=== PATIENT | female | born 1945 | race Caucasian/White ===

== ENCOUNTER 2017-06-25 11:33 | Inpatient (IN) ==
[2017-06-25] MEDS ORDERED: MORPHINE 2 MG/1 ML SYRINGE IV STA (12:22)
[2017-06-25] MEDS ORDERED: cefTRIAXone 1,000 MG in SODIUM CHLORIDE 0.9% 100 ML IV STA (12:22)
[2017-06-25] MEDS ORDERED: methylPREDNISolone SOD SUC 125 MG/2 ML VIAL IV STA (12:22)
[2017-06-25] MEDS ORDERED: ONDANSETRON 4 MG/2 ML VIAL IV STA ×2 (12:22→15:26)
[2017-06-25] MEDS ORDERED: FUROSEMIDE 100 MG/10 ML VIAL IV STA (12:22)
[2017-06-25] MEDS ORDERED: ALBUTEROL 2.5 MG/3 ML NEB RESP TX SCH (12:30)
[2017-06-25] MEDS ORDERED: ALBUTEROL 2.5 MG/3 ML NEB RESP TX ONE (12:36)
[2017-06-25 13:10] LABS: ABG Base Excess 11.7 MMOL/L (-2.5-2.5); ABG HCO3 35.5 MMOL/L (20-26); ABG Oxygen Saturation 97.4 % (95-100); ABG PH 7.324 (7.35-7.45); ABG TCO2 37.4 MMOL/L (23-27); Allen Test Positive
[2017-06-25 13:14] LABS: ABG PCO2 79.7 MM HG (35-48)
[2017-06-25] MEDS ORDERED: FUROSEMIDE 20 MG/2 ML VIAL IV STA (13:37)
[2017-06-25 13:55] LABS: Basophils % 0.1 % (0.0-0.8); Eosinophils % 0.1 % (0.00-10.9); Hematocrit 36.6 VOL% (35.7-47.0); Hemoglobin 11.7 GM/DL (12.0-16.0); Immature Granulocytes % 0.3 %; Immature Granulocytes Absolute 0.02 #; Lymphocytes # 2.7 10*3/uL (1.4-4.0); Lymphocytes % 36.5 % (21.3-54.2); Mean Corpuscular Hemoglobin 31 PG (27-34); Mean Corpuscular Volume 96.8 FL (87-102); Mean Platelet Volume 9.7 FL (9.6-12.0); Monocytes # 0.3 10*3/uL (0.11-0.8); Monocytes % 3.9 % (1.7-12.7); Neutrophils # 4.3 10*3/uL (1.4-7.4); Neutrophils % 59.1 % (38.7-73.9); Platelet Count 121 T/CUMM (130-400); Red Blood Count 3.78 MC/CUMM (3.8-5.5); White Blood Count 7.3 T/CUMM (4-12)
[2017-06-25 14:06] LABS: INR 0.9; PT Patient Result 9.5 SECS
[2017-06-25 14:15] LABS: Lactic Acid 1.1 MMOL/L (0.4-2.0)
[2017-06-25 14:17] LABS: Alanine Aminotransferase 20 U/L (13-56); Albumin 3.5 G/DL (3.4-5.0); Alkaline Phosphatase 48 U/L (45-117); Aspartate Amino Transferase 26 U/L (0-37); Bilirubin,Total < 0.39 MG/DL (0.2-1.0); Blood Urea Nitrogen 12 MG/DL (7-18); Calcium 8.1 MG/DL (8.5-10.1); Glucose 121 MG/DL (74-106); Magnesium 1.7 MG/DL (1.8-2.4); Osmolality,Calculated 275.7 MOS/KG (273-304); Potassium 2.9 MMOL/L (3.5-5.1); Sodium 138 MMOL/L (136-145); Total Protein 6.5 G/DL (6.4-8.3); Troponin I Only < 0.015 NG/ML (0.00-0.045)
[2017-06-25] MEDS ORDERED: POTASSIUM CHLORIDE 20 MEQ TABLET PO STA (14:24)
[2017-06-25] MEDS ORDERED: MAGNESIUM SULF RIDER 2 GM in PREMIX 1 EACH IV STA (14:33)
[2017-06-25] MEDS ORDERED: POTASSIUM CHLORIDE 20 MEQ TABLET PO ONE ×2 (14:46→20:30)
[2017-06-25] MEDS ORDERED: cefTRIAXone 1,000 MG VIAL ONE (14:46)
[2017-06-25] MEDS ORDERED: ONDANSETRON 4 MG/2 ML VIAL ONE ×2 (14:46→17:05)
[2017-06-25] MEDS ORDERED: FUROSEMIDE 40 MG/4 ML VIAL ONE (14:46)
[2017-06-25] MEDS ORDERED: MAGNESIUM SULF RIDER 50 ML IV ONE (14:47)
[2017-06-25] MEDS ORDERED: FUROSEMIDE 20 MG/2 ML VIAL ONE (14:47)
[2017-06-25] MEDS ORDERED: methylPREDNISolone SOD SUC 125 MG/2 ML VIAL ONE (14:47)
[2017-06-25] MEDS ORDERED: MORPHINE 2 MG/1 ML SYRINGE ONE (14:47)
[2017-06-25] MEDS ORDERED: ACETAMINOPHEN 325 MG TABLET PO PRN (15:31)
[2017-06-25] MEDS ORDERED: ONDANSETRON 4 MG/2 ML VIAL IV PRN (15:31)
[2017-06-25] MEDS ORDERED: MAGNESIUM SULF RIDER 4 GM in PREMIX 1 EACH IV PRN (15:33)
[2017-06-25] MEDS ORDERED: MAGNESIUM SULF RIDER 2 GM in PREMIX 1 EACH IV PRN (15:33)
[2017-06-25] MEDS ORDERED: ALBUTEROL/IPRATROPIUM 3 ML NEB RESP TX PRN (15:34)
[2017-06-25 16:41] LABS: Apearance,Urine CLEAR (Clear); Bilirubin,Urine Negative (Negative); Blood, Urine Negative (Negative); Glucose,Urine (UA) Negative (Negative); Ketones,Urine 5 mg/dL (Negative); Mucus,Urine Occasional /LPF (Occasional); Nitrite,Urine Negative (Negative); Protein,Urine Negative; RBC,Urine 1 /HPF (0-4); Squamous Epithelial Cell,Urine Occasional /HPF (0-10); Urine Color Yellow (Yellow); Urine Specific Gravity 1.013 (1.001-1.035); Urine Urobilinogen < 2.0 EU/DL (0.2-1.0); WBC,Urine 1 /HPF (0-6)
[2017-06-25] MEDS: FUROSEMIDE 40 MG/4 ML VIAL IV SCH (17:56)
[2017-06-25] MEDS: methylPREDNISolone SOD SUC 40 MG/1 ML VIAL IV SCH (21:16)
[2017-06-25] MEDS: FLUTICASONE/SALMETEROL 250-50 DISKUS 14 DOSE INH SCH (21:16)
[2017-06-25] MEDS: BUDESONIDE/FORMOTEROL 160-4.5 INHALER 6 GM INH SCH (21:17)
[2017-06-26] MEDS: methylPREDNISolone SOD SUC 40 MG/1 ML VIAL IV SCH ×3 (03:54→22:27)
[2017-06-26 05:45] LABS: Allen Test Positive; Pt O2 Delivery Device Venturi Mask
[2017-06-26 05:46] LABS: ABG Base Excess 13.3 MMOL/L (-2.5-2.5); ABG HCO3 43.4 MMOL/L (20-26); ABG Oxygen Saturation 94.6 % (95-100); ABG PH 7.286 (7.35-7.45); ABG PO2 73.8 MM HG (80-95); ABG TCO2 46.2 MMOL/L (23-27)
[2017-06-26 05:50] LABS: ABG PCO2 93.1 MM HG (35-48)
[2017-06-26 05:57] LABS: Basophils % 0.1 % (0.0-0.8); Hematocrit 34.4 VOL% (35.7-47.0); Hemoglobin 10.9 GM/DL (12.0-16.0); Immature Granulocytes % 0.5 %; Immature Granulocytes Absolute 0.08 #; Lymphocytes # 2.2 10*3/uL (1.4-4.0); Lymphocytes % 14.7 % (21.3-54.2); Mean Corpuscular HGB Conc 31.7 GM/DL (32-36); Mean Corpuscular Hemoglobin 30 PG (27-34); Mean Corpuscular Volume 96.1 FL (87-102); Mean Platelet Volume 10.2 FL (9.6-12.0); Monocytes # 0.7 10*3/uL (0.11-0.8); Monocytes % 4.5 % (1.7-12.7); Neutrophils % 80.2 % (38.7-73.9); Platelet Count 142 T/CUMM (130-400); Red Blood Count 3.58 MC/CUMM (3.8-5.5); Red Cell Distribution Width 11.9 % (9.3-17.3)
[2017-06-26 06:24] LABS: Calcium 8.3 MG/DL (8.5-10.1); Magnesium 2.2 MG/DL (1.8-2.4); Osmolality,Calculated 278.8 MOS/KG (273-304); Potassium 3.8 MMOL/L (3.5-5.1)
[2017-06-26 06:27] LABS: Band Neutrophils 18 % (0-10); Hypochromasia 1+; Lymphocytes 10 % (20-55); Macrocytosis Slight; Platelet Estimate Adequate; Segmented Neutrophils 68 % (50-85); Total Cells Counted 100
[2017-06-26] MEDS: FLUTICASONE/SALMETEROL 250-50 DISKUS 14 DOSE INH SCH ×2 (10:57→22:26)
[2017-06-26] MEDS: BUDESONIDE/FORMOTEROL 160-4.5 INHALER 6 GM INH SCH ×2 (10:58→22:27)
[2017-06-26] MEDS: FUROSEMIDE 40 MG/4 ML VIAL IV SCH ×2 (10:59→17:35)
[2017-06-26] MEDS: PANTOPRAZOLE 40 MG TABLET PO SCH (10:59)
[2017-06-26 21:51] LABS: ABG Base Excess 16.2 MMOL/L (-2.5-2.5); ABG HCO3 40.1 MMOL/L (20-26); ABG Oxygen Saturation 88.5 % (95-100); ABG PH 7.396 (7.35-7.45); ABG PO2 53.7 MM HG (80-95); ABG TCO2 40.4 MMOL/L (23-27); Allen Test Positive
[2017-06-26 21:53] LABS: ABG PCO2 73.5 MM HG (35-48)
[2017-06-27 03:37] LABS: Hemoglobin 11.2 GM/DL (12.0-16.0); Immature Granulocytes % 1.3 %; Immature Granulocytes Absolute 0.29 #; Lymphocytes # 3.9 10*3/uL (1.4-4.0); Mean Corpuscular Hemoglobin 30 PG (27-34); Mean Corpuscular Volume 94.9 FL (87-102); Mean Platelet Volume 10.7 FL (9.6-12.0); Monocytes # 0.9 10*3/uL (0.11-0.8); Monocytes % 4.3 % (1.7-12.7); Neutrophils # 16.4 10*3/uL (1.4-7.4); Neutrophils % 76.4 % (38.7-73.9); Platelet Count 197 T/CUMM (130-400); Red Blood Count 3.69 MC/CUMM (3.8-5.5); Red Cell Distribution Width 11.6 % (9.3-17.3); White Blood Count 21.5 T/CUMM (4-12)
[2017-06-27 04:06] LABS: ABG Base Excess 14.5 MMOL/L (-2.5-2.5); ABG HCO3 41.5 MMOL/L (20-26); ABG Oxygen Saturation 88.5 % (95-100); ABG PCO2 63.9 MM HG (35-48); ABG PO2 56.3 MM HG (80-95); ABG TCO2 43.4 MMOL/L (23-27); Allen Test Positive; Pt O2 Delivery Device BIPAP
[2017-06-27 04:30] LABS: Calcium 8.7 MG/DL (8.5-10.1); Potassium 3.4 MMOL/L (3.5-5.1)
[2017-06-27] MEDS: methylPREDNISolone SOD SUC 40 MG/1 ML VIAL IV SCH (04:46)
[2017-06-27 05:46] LABS: Band Neutrophils 13 % (0-10); Lymphocytes 7 % (20-55); Segmented Neutrophils 78 % (50-85); Total Cells Counted 100
[2017-06-27 05:47] LABS: Platelet Estimate Adequate
[2017-06-27 05:48] LABS: Stomatocytes Slight
[2017-06-27] MEDS ORDERED: POTASSIUM CHLORIDE 20 MEQ TABLET PO ONE (07:23)
[2017-06-27] MEDS: PANTOPRAZOLE 40 MG TABLET PO SCH (10:45)
[2017-06-27] MEDS: FLUTICASONE/SALMETEROL 250-50 DISKUS 14 DOSE INH SCH ×2 (10:45→21:35)
[2017-06-27] MEDS: BUDESONIDE/FORMOTEROL 160-4.5 INHALER 6 GM INH SCH ×2 (10:45→21:35)
[2017-06-27] MEDS: predniSONE 20 MG TABLET PO SCH (10:45)
[2017-06-27] MEDS: SPIRONOLACTONE 25 MG TABLET PO SCH (10:45)
[2017-06-27] MEDS: FUROSEMIDE 20 MG TABLET PO SCH (10:45)
[2017-06-28] MEDS: PANTOPRAZOLE 40 MG TABLET PO SCH (08:37)
[2017-06-28] MEDS: SPIRONOLACTONE 25 MG TABLET PO SCH (08:37)
[2017-06-28] MEDS: FUROSEMIDE 20 MG TABLET PO SCH (08:38)
[2017-06-28] MEDS: predniSONE 20 MG TABLET PO SCH (08:38)
[2017-06-28] MEDS: FLUTICASONE/SALMETEROL 250-50 DISKUS 14 DOSE INH SCH (08:38)
[2017-06-28] MEDS: BUDESONIDE/FORMOTEROL 160-4.5 INHALER 6 GM INH SCH (08:39)
[2017-06-28 11:44] VITALS: BP 149/74
== END 2017-06-28 13:34 | disposition swing bed (61) | DRG 192 ==
LOC: N.ED 11:33 → N.EDINP 14:47 → N.TELES 17:27
PROVIDERS: ADMIT Family Medicine; ATTEND Family Medicine